=== PATIENT | male | born 1960 | race Caucasian/White ===

== ENCOUNTER 2017-10-20 20:28 | Emergency (ER) | payer SELFPAY ==
[2017-10-20 22:53] VITALS: RESP 14
--- NOTE | 2017-10-20 23:43 | C.PDOC ---
History Of Present Illness <Tremaine Yang E - Last Filed: 10/21/17 00:09> <Faheem Torres - Last Filed: 10/22/17 21:22> 57 y/o male brought by an ambulance in handcuffs for public intoxication.The patient denies any injuries. Argumentative and spitting and foul-mouthed (as typical for this pt) so [employer] assisted EMS and restrained the pt for safety without injury. (Tremaine Yang) History Per: EMS History/Exam Limitations: intoxication Onset/Duration Of Symptoms: Hrs Current Symptoms Are (Timing): Still Present Modifying Factor(s): Alcohol Additional History Per: EMS <Tremaine Yang - Last Filed: 10/21/17 00:09> <Faheem Torres - Last Filed: 10/22/17 21:22> Time Seen by Provider: 10/20/17 20:54 Chief Complaint (Nursing): Substance Abuse Past Medical History Reviewed: Historical Data, Nursing Documentation, Vital Signs - Medical History PMH: Back Problems Denies: Chronic Kidney Disease Surgical History: No Surg Hx - Social History Hx Tobacco Use: No (UNKNOWN) Hx Alcohol Use: Yes Hx Substance Use: No - Immunization History Hx Tetanus Toxoid Vaccination: No Hx Influenza Vaccination: No Hx Pneumococcal Vaccination: No <Tremaine Yang - Last Filed: 10/21/17 00:09> Surgical History: No Surg Hx Family History: States: Unknown Family Hx <Faheem Torres Irlanda - Last Filed: 10/22/17 21:22> Vital Signs: Last Vital Signs Temp 97 F L 10/21/17 04:00 Pulse 80 10/21/17 04:00 Resp 14 10/21/17 04:00 BP 130/80 10/21/17 04:00 Pulse Ox 98 10/21/17 04:00 - [facility] Procedures ALCOHOL DETOXIFICATION (03/25/14) CLOS REDUCT TM DISLOCAT (07/28/13) VACCINATION NEC (03/25/14) Review Of Systems Except As Marked, All Systems Reviewed And Found Negative. Constitutional: Negative for: Fever, Chills Gastrointestinal: Negative for: Nausea, Vomiting, Abdominal Pain, Diarrhea Neurological: Positive for: Other (intoxicated ) <Tremaine Yang - Last Filed: 10/21/17 00:09> Physical Exam - Physical Exam Appears: Non-toxic, Other (intoxicated, alcohol on breath, and spitting at the police officers ) Skin: Warm, Dry Head: Normacephalic Oral Mucosa: Moist Neck: Supple Chest: Symmetrical Respiratory: No Rales, No Rhonchi, No Wheezing Gastrointestinal/Abdominal: Soft, No Tenderness, No Guarding Extremity: Capillary Refill (2,sec.) Neurological/Psych: Other (intoxicated ) Gait: Unsteady <Tremaine Yang - Last Filed: 10/21/17 00:09> ED Course And Treatment O2 Sat by Pulse Oximetry: 96 Reevaluation Time: 01:00 (improving yet still intoxicated. following instructions without disruptive behavior, restraints removed.) <Tremaine Yang - Last Filed: 10/21/17 00:09> Disposition - Disposition Disposition Time: 01:00 <Tremaine Yang - Last Filed: 10/21/17 00:09> Counseled Patient/Family Regarding: Diagnosis - Disposition Disposition Time: 05:08 - POA Present On Arrival: None <Faheem Torres - Last Filed: 10/22/17 21:22> - Disposition Referrals: [facility] [Outside] Disposition: HOME/ ROUTINE Condition: STABLE Forms: [facility] [facility] ([place]) - Clinical Impression Clinical Impression: Alcoholic intoxication - Scribe Statement The provider has reviewed the documentation as recorded by the Scribe <Tremaine Yang - Last Filed: 10/21/17 00:09> <aFheem Torres - Last Filed: 10/22/17 21:22> - Scribe Statement Adele Mcdonald All medical record entries made by the Scribe were at my direction and personally dictated by me. I have reviewed the chart and agree that the record accurately reflects my personal performance of the history, physical exam, medical decision making, and the department course for this patient. I have also personally directed, reviewed, and agree with the discharge instructions and disposition. (Tremaine Yang) Physician Patient Turnover Patient Signed Over To: Faheem Torres Handoff Comments: dispo in AM when sober <Tremaine Yang - Last Filed: 10/21/17 00:09>
[2017-10-21 05:26] VITALS: BP 130/80; PULSE 80; TEMP 97; O2SAT 98
== END 2017-10-21 05:27 | disposition home or self-care (01) ==
LOC: C.ER 20:28
DX: F10.129 Alcohol abuse with intoxication, unspecified (principal); Y90.9 Presence of alcohol in blood, level not specified

== ENCOUNTER 2018-01-15 16:26 | Emergency (ER) | payer SELFPAY ==
[2018-01-15 17:42] VITALS: BP 120/85; PULSE 98; RESP 18; TEMP 99.5; O2SAT 99
--- NOTE | 2018-01-15 19:52 | C.PDOC ---
History Of Present Illness 57 year old male presents to the ED via EMS for public intoxication. Pt is homeless. His gait is stable. Odor of alcohol on his breath. Patient states that he does not want to be here. He states that he does not want detox. Time Seen by Provider: 01/15/18 19:51 Chief Complaint (Nursing): Substance Abuse History Per: Patient History/Exam Limitations: intoxication Onset/Duration Of Symptoms: Unknown Modifying Factor(s): Alcohol Past Medical History Reviewed: Historical Data, Nursing Documentation, Vital Signs Vital Signs: Last Vital Signs Temp 99.5 F 01/15/18 17:38 Pulse 98 H 01/15/18 17:38 Resp 18 01/15/18 17:38 BP 120/85 01/15/18 17:38 Pulse Ox 99 01/15/18 19:52 Family History: States: Unknown Family Hx - Social History Hx Alcohol Use: No (DENIES) Hx Substance Use: (UNKNOWN) - Immunization History Hx Tetanus Toxoid Vaccination: No Hx Influenza Vaccination: No Hx Pneumococcal Vaccination: No Review Of Systems Except As Marked, All Systems Reviewed And Found Negative. Constitutional: Negative for: Fever, Chills ENT: Negative for: Ear Pain, Throat Pain Cardiovascular: Negative for: Chest Pain Respiratory: Negative for: Cough, Shortness of Breath Gastrointestinal: Negative for: Nausea, Vomiting, Abdominal Pain, Diarrhea Skin: Negative for: Rash Neurological: Negative for: Headache Psych: Positive for: Other (Alcohol abuse) Physical Exam - Physical Exam Appears: No Acute Distress, Other (Patient appears disheveled, foul smelling with odor of alcohol on breath) Skin: Normal Color, Warm, Dry Head: Atraumatic, Normacephalic Eye(s): bilateral: Normal Inspection, PERRL, EOMI Nose: Normal Oral Mucosa: Moist Tongue: Normal Appearing Lips: Normal Appearing Neck: Normal, Normal ROM, Supple Cardiovascular: Rhythm Regular Respiratory: Normal Breath Sounds Gastrointestinal/Abdominal: Soft, No Tenderness Back: Normal Inspection Extremity: Normal ROM, No Deformity Neurological/Psych: Oriented x3, Normal Speech Gait: Steady ED Course And Treatment O2 Sat by Pulse Oximetry: 99 Medical Decision Making Medical Decision Making: typical alcoholism, stable gait, wants d/c now. Disposition Doctor Will See Patient In The: Office Counseled Patient/Family Regarding: Studies Performed, Diagnosis - Disposition Referrals: Alcoholics Anonymous [Outside] [facility] [Outside] [facility] [Outside] [place] [Outside] Disposition: HOME/ ROUTINE Disposition Time: 19:52 Condition: GOOD Instructions: Alcohol Abuse and Alcoholism (DC) Forms: [facility] (Thai) - Clinical Impression Clinical Impression: Alcohol abuse - Scribe Statement The provider has reviewed the documentation as recorded by the Scribe The provider has reviewed the documentation as recorded by the Scribe (Miguel López) Provider Attestation: All medical record entries made by the Scribe were at my direction and personally dictated by me. I have reviewed the chart and agree that the record accurately reflects my personal performance of the history, physical exam, medical decision making, and the department course for this patient. I have also personally directed, reviewed, and agree with the discharge instructions and disposition.
== END 2018-01-15 19:55 | disposition home or self-care (01) ==
LOC: MERGE 16:26 → C.ER 16:26
DX: F10.10 Alcohol abuse, uncomplicated (principal); Y90.9 Presence of alcohol in blood, level not specified